=== PATIENT | female | born 2000 | race African-American/Black ===

== ENCOUNTER 2021-07-30 15:56 | Outpatient (CLI) | payer OTHER, SELFPAY ==
--- NOTE | ~2021-07-30 | US_ITS ---
EXAMINATION: US OB /maternal detail DATE: 07/30/2021 17:08 INDICATION: survey TECHNIQUE: Multiple obstetric sonographic images performed. FINDINGS: Comparison to ultrasound dated 05/25/2021 There is a single living fetus in vertex presentation. The placenta is anterior without placenta pre via. Amniotic fluid volume is normal. cardiac activity and movement is noted with a heart rate of 148 beats per minute. The following anatomy was identified as normal: 4 chamber heart 3 vessel cord cord insertion kidneys urinary bladder stomach spine diaphragm ventricles cisterna magna cerebellum The following biometric data were obtained: BPD: 52mm corresponds to gestational age 21 weeks 6 days. Head circumference: 188 mm corresponds to gestational age 21 weeks 0 days. Abdominal circumference: 174 mm corresponds to gestational age 22 weeks 3 days. Femur length: 38 mm corresponds to gestational age 22 weeks 1 days. Head circumference to abdominal circumference ratio: 1.08 (normal range for expected gestational age is 1.06-1.23). Estimated weight: 478 grams +/- 72 grams using Hadlock method. IMPRESSION: 1: Single living intrauterine with an estimated gestational age of 21weeks 6days by current ultrasound measurements, with an EDC of 12/04/2021 in vertex presentation. 2. Normal survey. Reviewed, dictated and finalized at location A. IMPRESSION: 1: Single living intrauterine with an estimated gestational age of 21 weeks 6days by current ultrasound measurements, with an EDC of 12/04/2021 in ve rtex presentation. 2. Normal survey.
[2021-07-30 19:48] LABS: Hepatitis B Surface Antigen Negative (Negative)
[2021-08-14 16:20] LABS: SMA 2.0 RISK VARIANT NOT DETECTED
== END 2021-07-30 15:57 | disposition home or self-care (01) ==
PROVIDERS: Obstetrics & Gynecology; PCP Emergency Medicine; Visit Provider Obstetrics & Gynecology
DX: Z34.92 Encounter for supervision of normal pregnancy, unspecified, second trimester (principal); Z3A.21 21 weeks gestation of pregnancy
CPT/HCPCS: 36415; 76805; 81329; 86850; 86900; 86901; 87340

== ENCOUNTER 2021-10-06 13:01 | Outpatient (CLI) | payer OTHER, SELFPAY ==
[2021-10-06 14:28] LABS: Basophils Percent Auto 0.3 % (0.2-1.2); Eosinophils Absolute Auto 0.1 K/mm3 (0-0.3); Eosinophils Percent Auto 1.1 % (0-4.4); Hematocrit 29.5 % (37.0-47.0); Hemoglobin 8.9 g/dL (12.0-15.0); Immature Granulocyte Absolute 0.22 K/mm3 (0.00-0.031); Immature Granulocyte Percent A 2.1 % (0-0.5); Lymphocytes Absolute Auto 1.21 K/mm3 (0.9-3.2); Lymphocytes Percent Auto 11.7 % (18.3-44.2); Mean Corpuscular HGB Conc 30.2 g/dl (32-36); Mean Corpuscular Hemoglobin 25.5 pg (26-34); Mean Corpuscular Volume 84.5 fl (80-100); Mean Platelet Volume 10.5 fl (7.4-10.4); Monocytes Percent Auto 9.2 % (2.6-8.5); Neutrophils Absolute Auto 7.9 K/mm3 (1.3-6.7); Neutrophils Percent Auto 75.6 % (45.5-73.1); Platelet Count Result 262 k/mm3 (150-375); Red Blood Count 3.49 M/mm3 (4.2-5.4); Red Cell Distribution Width 13.7 % (11.5-14.5); White Blood Count 10.4 K/mm3 (4.5-10.0)
[2021-10-06 14:38] LABS: Glucose 1 Hour PP 50gm Dose 77 mg/dL
[2021-10-06 15:19] LABS: HIV 1/2 Ab P24 Ag Result Negative (Negative)
== END 2021-10-06 13:02 | disposition home or self-care (01) ==
LOC: ANHLAB 13:03
PROVIDERS: PCP Emergency Medicine; Visit Provider Obstetrics & Gynecology
DX: Z34.90 Encounter for supervision of normal pregnancy, unspecified, unspecified trimester (principal); Z3A.00 Weeks of gestation of pregnancy not specified
CPT/HCPCS: 36415; 82947; 85025; 86703; G0432

== ENCOUNTER 2021-11-06 09:56 | Observation (INO) | payer OTHER, SELFPAY ==
[2021-11-06] VITALS (8 sets, daily range): BP systolic 107–132; BP diastolic 52–95; PULSE 85–91
--- NOTE | 2021-11-06 12:25 | OBADM ---
This patient, Arun Huynh, admitted to the OB room Labor/Delivery/Recovery 109 for observation. Patient/family oriented to hospital policies and general routines including ID bracelet, bed and alarms, visiting hours, pain management, procedures, bathroom and other care routines, personal items, smoking policy, room service/diet, and visiting hours. Patient/Family are encouraged to report perceived risks to care and to ask questions if they do not understand what they are told or what they should do.
--- NOTE | 2021-11-06 12:34 | PM.OBTRLD ---
OB - Triage/Final Diagnosis Visit Information Comments/Additional reasons for admission: I have assessed the risk for this patient, Arun Huynh, and determined that she would benefit from observation care. Evaluation Vital signs: Vital Signs - 24 hr 11/06/21 10:36 11/06/21 10:49 11/06/21 11:16 Pulse Rate 87 87 91 Blood Pressure 120/75 117/82 107/52 L 11/06/21 11:30 11/06/21 11:46 11/06/21 12:00 Pulse Rate 86 87 85 Blood Pressure 125/69 132/81 131/95 H 11/06/21 12:04 11/06/21 12:15 Pulse Rate 85 86 Blood Pressure 112/72 124/78 Final Diagnosis (1) contractions: Code(s): O47.00 - False labor before 37 completed weeks of gestation, unspecified trimester Status: Acute
== END 2021-11-06 12:42 | disposition home or self-care (01) ==
PROVIDERS: Admitting Provider Obstetrics & Gynecology; PCP Emergency Medicine; Visit Provider Obstetrics & Gynecology
DX: O47.03 False labor before 37 completed weeks of gestation, third trimester (principal); Z3A.36 36 weeks gestation of pregnancy
CPT/HCPCS: G0378; G0379

== ENCOUNTER 2021-11-07 11:46 | Outpatient (CLI) | payer OTHER, SELFPAY ==
[2021-11-07 12:15] VITALS: BP 112/64; PULSE 95
[2021-11-07 12:28] VITALS: BP 122/71; PULSE 90
[2021-11-07 12:30] VITALS: BP 122/71; PULSE 90
== END 2021-11-07 12:45 ==
LOC: ANHOBOP 11:50 → ANHOBPP 11-12 06:15
PROVIDERS: PCP Emergency Medicine; Visit Provider Obstetrics & Gynecology
DX: O42.90 Premature rupture of membranes, unspecified as to length of time between rupture and onset of labor, unspecified weeks of gestation (principal); Z3A.00 Weeks of gestation of pregnancy not specified
CPT/HCPCS: 59025; 84112; 99199

== ENCOUNTER 2021-11-17 14:59 | Outpatient (CLI) | payer OTHER, SELFPAY ==
[2021-11-17 15:27] LABS: Basophils Percent Auto 0.2 % (0.2-1.2); Eosinophils Percent Auto 0.3 % (0-4.4); Hematocrit 35.6 % (37.0-47.0); Immature Granulocyte Absolute 0.09 K/mm3 (0.00-0.031); Immature Granulocyte Percent A 0.9 % (0-0.5); Lymphocytes Absolute Auto 1.33 K/mm3 (0.9-3.2); Lymphocytes Percent Auto 13.9 % (18.3-44.2); Mean Corpuscular HGB Conc 30.9 g/dl (32-36); Mean Corpuscular Hemoglobin 26.6 pg (26-34); Mean Corpuscular Volume 86.2 fl (80-100); Mean Platelet Volume 10.7 fl (7.4-10.4); Monocytes Absolute Auto 0.8 K/mm3 (0.1-0.6); Monocytes Percent Auto 8.6 % (2.6-8.5); Neutrophils Absolute Auto 7.3 K/mm3 (1.3-6.7); Neutrophils Percent Auto 76.1 % (45.5-73.1); Platelet Count Result 258 k/mm3 (150-375); Red Blood Count 4.13 M/mm3 (4.2-5.4); Red Cell Distribution Width 18.7 % (11.5-14.5); White Blood Count 9.6 K/mm3 (4.5-10.0)
[2021-11-17 15:40] LABS: Alanine Aminotransferase 12 U/L (6-35); Albumin Level 3.4 g/dL (3.5-5.1); Alkaline Phosphatase 190 U/L (38-126); Anion Gap 8 mmol/L (8-16); Aspartate Amino Transferase 21 U/L (14-36); Bilirubin,Total 0.3 mg/dL (0.2-1.3); Blood Urea Nitrogen 9 mg/dL (7-17); Calcium 8.7 mg/dL (8.4-10.2); Carbon Dioxide 21 mmol/L (22-30); Chloride 105 mmol/L (98-107); Estimated Glomerular Filt Rate > 60; Glucose 75 mg/dL (65-110); Lactate Dehydrogenase 221 U/L (120-246); Potassium 3.9 mmol/L (3.4-5.0); Sodium 134 mmol/L (137-145); Uric Acid 5.4 mg/dL (2.5-7.5)
[2021-11-17 17:51] LABS: Creatinine Urine 421.1 mg/dL
[2021-11-17 17:52] LABS: Total Protein Urine Random < 5 mg/dL
== END 2021-11-17 15:00 | disposition home or self-care (01) ==
LOC: ANHLAB 15:01
PROVIDERS: PCP Emergency Medicine; Referring Provider Obstetrics & Gynecology; Visit Provider Obstetrics & Gynecology
DX: R51.9 Headache, unspecified (principal)
CPT/HCPCS: 36415; 80053; 81050; 82570; 83615; 84156; 84550; 85025

== ENCOUNTER 2021-12-01 02:26 | Inpatient (IN) | payer OTHER, SELFPAY ==
[2021-12-01] VITALS (81 sets, daily range): BP systolic 109–238; BP diastolic 47–220; PULSE 38–156; RESP 16–18; TEMP 36.6–37.2; O2SAT 73–100; BMI 31.8
[2021-12-01] MEDS: LACTATED RINGERS 1,000 ML 125 ML IV CONT ×3 (02:52→06:13)
[2021-12-01 02:58] LABS: Basophils Percent Auto 0.3 % (0.2-1.2); Eosinophils Absolute Auto 0.1 K/mm3 (0-0.3); Eosinophils Percent Auto 0.6 % (0-4.4); Hematocrit 37.2 % (37.0-47.0); Hemoglobin 11.8 g/dL (12.0-15.0); Immature Granulocyte Absolute 0.14 K/mm3 (0.00-0.031); Immature Granulocyte Percent A 1.3 % (0-0.5); Lymphocytes Absolute Auto 2.44 K/mm3 (0.9-3.2); Lymphocytes Percent Auto 22.6 % (18.3-44.2); Mean Corpuscular HGB Conc 31.7 g/dl (32-36); Mean Corpuscular Hemoglobin 26.6 pg (26-34); Mean Platelet Volume 11.3 fl (7.4-10.4); Monocytes Absolute Auto 1.1 K/mm3 (0.1-0.6); Monocytes Percent Auto 10.2 % (2.6-8.5); Platelet Count Result 288 k/mm3 (150-375); Red Blood Count 4.43 M/mm3 (4.2-5.4); Red Cell Distribution Width 17.6 % (11.5-14.5); White Blood Count 10.8 K/mm3 (4.5-10.0)
[2021-12-01] MEDS: ONDANSETRON INJ 4 MG/2 ML VIAL IV PUSH (02:58)
--- NOTE | 2021-12-01 03:09 | WPDANESEPP ---
Anes - Eval Pre Procedure Procedure: labor epidural Date/Time: 12/01/21 03:09 Pre Op Diagnosis: Leaking Patient Data Age: 21 Gender: F Height: Weight: Allergies Allergy/AdvReac Type Severity Reaction Status Date / Time Penicillins Allergy Intermediate Hives Verified 06/17/21 10:25 Home Medications Medication Instructions Recorded Confirmed Type vitamins-iron fumarate 65 1 tablet PO DAILY 05/13/21 11/24/21 History mg iron-folic acid 1 mg tablet ferrous sulfate 325 mg (65 mg 325 mg PO TID #90 tabs 11/03/21 11/24/21 Rx iron) tablet (Feosol) azithromycin 250 mg tablet See Rx Instructions PO .COMPLEX #6 11/24/21 11/24/21 Rx tabs Laboratory Tests 12/01/21 12/01/21 02:52 02:52 WBC 10.8 K/mm3 H K/mm3 (4.5-10.0) RBC 4.43 M/mm3 M/mm3 (4.2-5.4) Hgb 11.8 g/dL L g/dL (12.0-15.0) Hct 37.2 % % (37.0-47.0) MCV 84.0 fl fl (80-100) MCH 26.6 pg pg (26-34) MCHC 31.7 g/dl L g/dl (32-36) RDW 17.6 % H % (11.5-14.5) Plt Count 288 k/mm3 k/mm3 (150-375) MPV 11.3 fl H fl (7.4-10.4) Immature Gran % (Auto) 1.3 % H % (0-0.5) Neut % (Auto) 65.0 % % (45.5-73.1) Lymph % (Auto) 22.6 % % (18.3-44.2) Izard % (Auto) 10.2 % H % (2.6-8.5) Eos % (Auto) 0.6 % % (0-4.4) Baso % (Auto) 0.3 % % (0.2-1.2) Lymph # (Auto) 2.44 K/mm3 K/mm3 (0.9-3.2) Izard # (Auto) 1.1 K/mm3 H K/mm3 (0.1-0.6) Eos # (Auto) 0.1 K/mm3 K/mm3 (0-0.3) Baso # (Auto) 0.0 K/mm3 K/mm3 (0.0-0.1) Abs Immat Gran (auto) 0.14 K/mm3 H K/mm3 (0.00-0.031) Absolute Neuts (auto) 7.0 K/mm3 H K/mm3 (1.3-6.7) Absolute Nucleated RBC 0.0 K/mm3 K/mm3 (0.0-0.012) Nucleated RBC % 0.0 % % (0.0-0.2) RPR Pending Patient hx anesthesia problems: none Family hx anesthesia problems: none Results Review: All pre-operative results and documents have been reviewed as part of the pre-operative evaluation. [facility] Past Medical History Medical History Anemia Anxiety and depression Heart murmur IBS (irritable bowel syndrome) Mild acid reflux Suppression of menstruation Surgical History Surgical History History of endoscopy as child for acid reflux Family History Family History Grandparent Diabetes mellitus paternal grandmother Mother Hypertension Hypothyroidism Father Hypertension Heart disease Social History Social History Smoking status: Former smoker Tobacco type: cigarettes Smoking end date: 03/31/21 Alcohol intake: never Substance use: former Substance use type: marijuana Last use: 03/09/2021 Additional living arrangements comments: boyfriend 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
--- NOTE | 2021-12-01 04:33 | LDADM ---
This patient, Arun Huynh, was admitted to Labor/Delivery/Recovery 106 on 12/01/21 at 02:26. Plans for labor, pain management and were discussed with patient. Patient/family oriented to hospital policies and general routines including ID bracelet, bed and alarms, visiting hours, pain management, procedures, bathroom and other care routines, personal items, smoking policy, room service/diet and guest tray routines, security routines, and visiting hours. Patient/Family are encouraged to report perceived risks to care and to ask questions if they do not understand what they are told or what they should do. See [facility] for further documentation.
--- NOTE | 2021-12-01 05:56 | WPDOBADMIT ---
Obstetrics - Admit Note Admission Note: record reviewed. No pertinent additions to the history and/or any subsequent changes in the physical findings that are not consistent with the expected course of the were found. Additions to the history and/or subsequent changes in the physical findings follow. None. 21yo @ 39.5wks who presented in active labor. reassuring vitals and category 1 heart rate tracing. Her has been complicated by: - rubella, varicella, parvo & CMV non-immune
--- NOTE | 2021-12-01 05:57 | WPDHPUPDATE1 ---
History and Physical Update Update Date/Time: 12/01/21 05:57 History and Physical has been reviewed, including an updated exam of the patient. There are NO changes in the patient's condition. Risks, benefits, and alternatives have been discussed and questions answered. Patient agrees to proceed with procedure.
[2021-12-01] MEDS: OXYTOCIN 30 UNITS/NS 500 ML 30 UNITS/500 ML BAG 999 UNITS IV CONT (06:14)
[2021-12-01] MEDS: miSOPROStol 200 MCG TABLET 800 MCG (06:48)
--- NOTE | 2021-12-01 06:55 | PM.OBPRVD ---
OB - Delivery Note Procedure Delivery date: 12/01/21 Delivery monitor: External FHT and External Uterine Route of delivery: Laceration Description: None Specimen: No Quantitative Blood Loss (ml): 350 Anesthesia type: Epidural Disposition: Floor Baby Date of : 12/01/21 Time of : 06:41 Weeks of gestation at delivery: 39 (.5) gender: Female Weight (pounds): 7 Weight (ounces): 6 presentation: vertex position: Right Occiput Anterior Placenta delivery description: Expressed Cord Vessel Description: 3 Vessels and Delayed Cord Clamping score one minute: 9 score five minutes: 9 Narrative: Arun progressed to complete dilation with strong desire to push. She pushed for approximately 30 minutes with good maternal effort. She delivered the head over intact perineum. She easily delivered the infant's shoulders and body without complications. The was immediately placed skin to skin with good cry. Delayed cord clamping was performed. The umbilical cord was then clamped and cut. A segment of the cord was collected for cord gases. The remaining cord blood was collected for typing. With Pitocin running and gentle downward traction on the cord, the placenta delivered without complications. Brisk bleeding was noted and bimanual massage was performed. Good uterine tone with minimal bleeding was then noted. She was examined and no lacerations were noted. Misoprostol 800 mcg was placed rectally. Sponge, lap, instrument, and needle counts were correct at the end the procedure. Mom and baby were left bonding in the birthing suite in stable condition. [facility] Delivery Billing Delivery Delivery: Delivery Charge
[2021-12-01] MEDS: WITCH HAZEL 40 PADS 1 PAD TOPICAL (09:18)
[2021-12-01] MEDS: BENZOCAINE 20% AER SPR (*SP) 56 GM CAN 1 SPRAY TOPICAL (09:18)
--- NOTE | 2021-12-01 09:22 | OBPPTRN ---
Patient transferred to post room #283 via wheelchair. Support person present. Oriented to unit, room, information board, rooming in, admission packet and security measures. Patient verbalizes understanding.
[2021-12-01 15:24] LABS: Rapid Plasma Reagin Non-Reactive (NonReactive)
--- NOTE | 2021-12-01 15:41 | PC.NURSE ---
[id number] Resources provided for inpatient and outpatient services using a resource guide. Mother voiced understanding of information and will call if there is a request for assistance. Consulted with patient to assess needs related to . Mother led conversation with her experience with feeding baby so far. Mother works well with her with encouragement and educated in regards to assisting her infant to the breast, protecting her comfort, encouraging infant to latch with big, wide, open gape. Reviewed working with infant, breast, nipples and how to protect the nipples with an optimal deep latch, good positioning, and good hand washing. Encouraged understanding the benefits of skin to skin, responding to feeding cues, frequencies of feeding 8-12 times in 24 hours (approximately 2-3 hours), duration of feedings, milk production, intake/output feeding sheet and signs of adequate intake encouraging swallowing at the breast. Reviewed positioning and alignment, supporting breast, off-centered (asymmetrical latch) and leading with the chin with big open wide gape. Infant latched optimally to the left breast in cross cradle position. Education given to mother of how to visualize suck/swallow ratios and drinking at the breast. was able to maintain latch without discomfort to mother. Resources used to facilitate learning were used from the tool and mom and baby guide. Mother voiced understanding of the education shared, calling for assistance if the infant does not latch or if there is discomfort with . Reported to the primary RN.
[2021-12-02 04:40] VITALS: BP 128/87; PULSE 70; RESP 18; TEMP 36.2; O2SAT 100
[2021-12-02] MEDS: IBUPROFEN 600 MG TABLET PO (04:43)
[2021-12-02 05:50] LABS: Hemoglobin 10.7 g/dL (12.0-15.0)
--- NOTE | 2021-12-02 07:05 | P.PNOB_ITS ---
OB - PN: Subj Subjective Date/time seen: 12/02/21 07:05 Narrative: PPD#1 Arun reports doing well today. 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 Her pain is controlled. She is tolerating regular diet, voiding, passing gas, and ambulating without issues. She is breast feeding. She would like to go home tomorrow. OB - PN: Obj Data Labs CBC & Chem 7: 12/02/21 05:42 Labs: Laboratory Results - last 24 hr 12/01/21 12/02/21 02:52 05:42 Hgb 10.7 L Hct 34.0 L RPR Non-reactive OB - PN A/P Assessment and Plan (1) Normal vaginal delivery: Code(s): O80 - Encounter for full-term uncomplicated delivery Status: Acute Plan day: 1 Plan: routine care and discharge home (tomorrow) Comments: - Pelvic rest; take meds as prescribed - ER return precautions: fever, n/v/abd pain, bleeding, HTN Time Spent With Patient Time: Total time spent is greater than 50% in coordination of care (as documented) at patient's floor/unit and/or counseling patient: Review of Systems Constitutional: Constitutional: Denies chills, Denies fever(s) and Denies headache(s) Eyes: Eyes: Denies change in vision ENT: Denies dizziness and Denies headache(s) Cardiovascular: Cardiovascular: Denies chest pain, Denies palpitations and Denies dyspnea Respiratory: Respiratory: Denies cough and Denies dyspnea Gastrointestinal: Gastrointestinal: Denies nausea and Denies vomiting Neurologic: Denies dizziness and Denies headache(s) Endocrine: Endocrine: Denies palpitations Exam Const: General: cooperative, healthy appearing, comfortable and no acute distress Orientation/consciousness: patient oriented x3 Resp: Effort & Inspection: normal respiratory effort Auscultation: clear to auscultation bilaterally Cardio: Rate: regular rate GI: Inspection: non-distended GI Palp: No abdominal tenderness and Yes Soft to palpation Auscultation: normal bowel sounds : Other: fundus firm Skin: General skin exam: normal color Neuro: General: patient oriented x3 Extrem: General: normal to inspection Psych: Appearance: grossly normal Affect: normal affect Attitude: cooperative
[2021-12-02 08:25] VITALS: BP 120/68; PULSE 66; RESP 16; TEMP 36.6; O2SAT 99
[2021-12-02] MEDS: MULTIVIT/MIN/PREN/FOL AC/IRON TABLET 1 TAB PO (08:39)
[2021-12-02] MEDS: DOCUSATE SODIUM 100 MG CAPSULE PO ×2 (08:39→16:22)
--- NOTE | 2021-12-02 09:52 | WPDANLDPN2 ---
Anes-Prog Note L&D Date/Time: 12/02/21 09:52 Comfortable throughout: labor and delivery Neuraxial method: epidural Epidural/Spinal procedure site: clean & non-tender Neuro status: Neuro function grossly intact. Cardiovascular status: normal Respiratory status: normal Airway patency: baseline Mental status: baseline Post-Op hydration status: normal Vital Signs: Last Vital Signs Temp 97.9 F 12/02/21 08:25 Pulse 66 12/02/21 08:25 Resp 16 12/02/21 08:25 BP 120/68 12/02/21 08:25 Pulse Ox 99 12/02/21 08:25 O2 Del Method Room Air 12/01/21 16:45 Pain score (VAS): 0/10 I/O: Intake & Output 12/01/21 12/02/21 12/02/21 23:59 07:59 15:59 Intake Total 250 Balance 250 Post-procedural complaints: none Patient feedback: Patient satisfied with anesthetic care.
--- NOTE | 2021-12-02 12:31 | PC.NURSE ---
[id number] Consulted with patient to assess needs related to . Mother led conversation with her experience with feeding baby so far and state her left nipple is becoming more sore and she believes it is because her infant isn't latching well on that side. Mother works well with her infant with encouragement. Reviewed working with infant, breast, nipples and how to protect the nipples with an optimal deep latch, good positioning, and good hand washing. Encouraged understanding the benefits of skin to skin, responding to feeding cues, frequencies of feeding 8-12 times in 24 hours (approximately 2-3 hours), duration of feedings, milk production, intake/output feeding sheet and signs of adequate intake encouraging swallowing at the breast. Reviewed positioning and alignment, supporting breast with a sandwich hold, off-centered (asymmetrical latch) and leading with the chin with big, open, wide gape leading with the chin. Infant latched optimally to the left breast in football position. Education given to mother of how to visualize suck/swallow ratios and listening for drinking at the breast. was able to maintain latch without discomfort to mother after the initial soreness. Nipple care reviewed with optimal latch and good positioning. Nipples are intact and not misshaped. Resources used to facilitate learning were used from the tool. Mother voiced understanding of the education shared, calling for assistance if the infant does not latch or if there is discomfort with . Reported to the primary RN.
[2021-12-02 18:30] VITALS: BP 127/88; PULSE 71; RESP 16; TEMP 36.8; O2SAT 100
[2021-12-02 21:30] VITALS: PULSE 71; RESP 16; O2SAT 100
[2021-12-03] MEDS: MULTIVIT/MIN/PREN/FOL AC/IRON TABLET 1 TAB PO (08:17)
[2021-12-03] MEDS: DOCUSATE SODIUM 100 MG CAPSULE PO (08:17)
[2021-12-03 08:20] VITALS: BP 130/86; PULSE 86; RESP 18; TEMP 36.3; O2SAT 100
[2021-12-03] MEDS: MEASLES,MUMPS,RUBELLA VACCINE 0.5 ML VIAL SUB-Q (09:44)
--- NOTE | 2021-12-03 13:14 | PC.NURSE ---
[id number] Mother led the conversation with her experience and plan to feed her so far and her ability to independently latch optimally without discomfort. Reminded parents to use good handwashing technique to prevent infection. Mother is feeding appropriately for growth of and understands stimulating to eat if needed. Infant has had appropriate feedings in the last 24 hours meets the outcomes for weight, output and jaundice at this time. Mother states she is confident to continue effectively her infant at home or when to call for assistance and denies any additional assistance or education at this time. Reinforced understanding of milk production, transition of milk, signs of adequate intake, prevention/relief of engorgement, responsive after visualizing feeding cues, the different methods of stimulating infant to breastfeed 2-3 hours after the start of the last feeding, community resources, medication information reviewed per [employer] and when to call a provider using the resource of the mom and baby guide, QR code videos, and the [facility] [facility] website. Mother voiced understanding of the education shared. Primary RN was present to discharge patient to home.
[2021-12-04 13:55] VITALS: BP 129/76; PULSE 105; RESP 20; TEMP 36.8; O2SAT 100
== END 2021-12-03 10:30 | disposition home or self-care (01) | DRG 807 ==
LOC: ANHLDR 02:30 → ANHOB2 09:35
PROVIDERS: Admitting Provider Obstetrics & Gynecology; PCP Emergency Medicine; Visit Provider Obstetrics & Gynecology
DX: O99.02 Anemia complicating childbirth (principal); Z37.0 Single live birth; Z88.0 Allergy status to penicillin; Z87.891 Personal history of nicotine dependence; Z3A.39 39 weeks gestation of pregnancy
CPT/HCPCS: 36415; 84112; 85014; 85018; 85025; 86592; 86850; 86900; 86901; 90710; A9270; J2405; J2590; J2795; J7120